=== PATIENT | female | born 1995 | race Two or more races ===

== ENCOUNTER 2024-11-27 16:55 | Emergency (ER) | payer SELFPAY ==
[2024-11-27 16:56] VITALS: BMI 34.0
[2024-11-27 17:06] VITALS: BP 126/80; PULSE 89; RESP 18; TEMP 37; O2SAT 99
--- NOTE | 2024-11-27 17:07 | XR_ITS ---
Examination: Fingers, right hand fourth digit 3 views Technique: AP, oblique, lateral views right hand fourth digit 3 views. Exam date and time: December 07, 2024 1715 hrs. Indications: Patient fell today with injury to the hand, fourth digit pain. Findings: Acute fractures distal phalanx fourth digit including fracture along the long axis of the distal phalanx No major displacement Impression: Acute fractures distal phalanx fourth digit
--- NOTE | 2024-11-27 17:38 | EDNOTE_ITS ---
<Statement entered by Amrita Dyer MD - 11/28/24 16:13> As co-signing physician, I was present and available for consult prn. I concur with the plan and care as documented by the midlevel provider. Upper Extremity Injury RME/HPI General Chief Complaint: Hand/Wrist Problems Stated Complaint: RIGHT FOURTH FINGER INJURY Time Seen by Provider: 11/27/24 17:07 Arrival date/time: 11/27/24 16:55 29-year-old female presents to the emergency department complains of right hand injury specifically the right fourth digit after a ground-level fall today patient reports that she slipped in the mud Limitations: no limitations Related Data Previous Rx's ?Medication ?Instructions ?Recorded hydrocodone 5 mg-acetaminophen 325 1 tab PO BID PRN pa in #10 tabs 11/27/24 mg tablet ibuprofen 800 mg tablet 800 mg PO TID PRN pain #30 t abs 11/27/24 Allergies Allergy/AdvReac Type Severity Reaction Status Date / Time No Known Allergies Allergy Verified 11/27/24 16:56 Review of Systems Review of Systems Systems Reviewed: All systems reviewed, normal except as documented Constitutional Constitutional: Reports system reviewed and no additional complaints, except as documented, Denies fever(s) and Denies headache(s) Eyes Eyes: Reports system reviewed and no additional complaints, except as documented and Denies blurry vision ENT Ears, Nose, Mouth, and Throat: Reports system reviewed and no additional complaints, except as documented, Denies headache(s), Denies nasal congestion and Denies nasal discharge Cardiovascular Cardiovascular: Reports system reviewed and no additional complaints, except as documented, Denies chest pain and Denies dyspnea Respiratory Respiratory: Reports system reviewed and no additional complaints, except as documented, Denies chest congestion, Denies cough and Denies dyspnea Gastrointestinal Gastrointestinal: Reports system reviewed and no additional complaints, except as documented and Denies abdominal pain Musculoskeletal Musculoskeletal: Reports system reviewed and no additional complaints, except as documented, Reports arthralgias, Denies deformity, Denies numbness, Reports stiffness and Denies tingling Integumentary/Breasts Skin/Breast: Reports system reviewed and no additional complaints, except as documented and Denies rash Neurologic Neurologic: Reports system reviewed and no additional complaints, except as documented, Reports as per HPI, Denies headache(s), Denies numbness and Denies tingling Past Medical History Social History SMOKING STATUS: Never smoker ED Exam General Limitations: Present no limitations General appearance: Present alert and in no apparent distress Head Head exam: Present atraumatic, normocephalic and normal inspection Eye Eye exam: Present normal appearance, PERRL and EOMI; Absent conjunctival injection ENT ENT exam: Present normal exam, normal oropharynx and mucous membranes moist Neck Neck exam: Present normal inspection, full ROM and trachea midline Chest Chest inspection: Present normal inspection and symmetric chest wall rise Respiratory Respiratory exam: Present normal lung sounds bilaterally Cardiovascular Cardiovascular exam: Present regular rate, normal rhythm and normal heart sounds Abdominal Exam Abdominal exam: Present soft and normal bowel sounds Extremities Exam Extremities exam: Present normal inspection, full ROM, tenderness, normal capillary refill and joint swelling Back Exam Back exam: Present normal inspection and full ROM Neurological Exam Neurological exam: Present alert, oriented X3 and CN II-XII intact Psychiatric Psychiatric exam: Present normal affect and normal mood Skin Skin exam: Present warm, dry, intact and normal color Course Quality Measures none Orders Category Date Time Status Splint / Immobilizer STAT Care 11/27/24 17:41 Completed XR finger RT min 2V Stat Exams 11/27/24 17:07 Completed Vital Signs Vital signs: Vital Signs Temperature 98.6 F 11/27/24 17:06 Pulse Rate 89 11/27/24 17:06 Respiratory Rate 18 11/27/24 17:06 Blood Pressure 126/80 11/27/24 17:06 Pulse Oximetry (%) 99 11/27/24 17:06 Oxygen Delivery Method Room Air 11/27/24 17:06 O2 saturation 99% room air within normal limits Procedures -ED Splint Fabrication: Pre-Fabricated Type: Finger Protector Reason for Splint: Optimal Positioning and Pain Management Circulation Distal to Splint: Yes Movement Distal to Splint: Yes Senation Distal to Splint: Yes Tolerance: Tolerates Well Extremity Injury MDM Narrative MDM Narrative:: 29-year-old female presents to the emergency department complains of right hand injury specifically the right fourth digit after a ground-level fall today patient reports that she slipped in the mud Patient reports no other injuries On exam patient has pain and bruising to the right hand fourth digit no deformity X-ray of the right hand obtained patient does have fracture right hand fourth digit distal aspect Patient placed in a splint Patient given pain medications and discharged home Patient instructed to follow-up with PCP in order get a referral to orthopedics for worsening symptoms return immediately Patient data External records reviewed:: [facility] previous records Clinical information provided by:: patient Social determinants that could affect healthcare access:: none Patient has the following chronic illnesses:: None How is presenting disease/condition affected by chronic disease/condition?: no chronic disease Evaluation data The following diagnostics were reviewed and interpreted by me:: radiology exam(s) Lab and/or radiology exams considered but not ordered:: Radiology obtain Interpretation Summary: Reviewed by me Medications / Prescriptions Medications or Prescriptions considered but not ordered:: Given Medication administrations:: Given Consultations Consultation(s) initiated? (list below): No Diagnosis Upper Extremity Injury Differential Diagnosis: finger sprain, dislocation of finger, fracture of hand and other (Finger fracture) Most likely diagnosis given after review of the tests above:: Finger fracture Admission Indicated Admission indicated?: not indicated Admission Request Was there a request for admission?: No Disposition Plan Disposition Plan: Discharge Discharge Attestation Discharge Attestation: The patient and all family members were given an opportunity to ask questions and understood the discharge instructions. Discharge instructions specifically effects, indications for sooner follow up or return to the emergency department, and the expected course of current diagnosis. Patient condition: Stable Discharge Plan Plan Patient Disposition: HOME (Self Care) Disposition Comment: Stable Prescriptions/Referrals Prescriptions/Med Rec: New ibuprofen 800 mg tablet 800 mg PO TID PRN (Reason: pain) Qty: 30 0RF hydrocodone-acetaminophen 5-325 mg tablet 1 tab PO BID MDD 10 PRN (Reason: pain) Qty: 10 0RF Problem List Clinical Impression: Finger fracture Patient/Caregiver Discharge Instructions Education Materials: How [employer] [facility] Additional Instructions: Please follow up with your primary care doctor in the next 24-48hrs for any worsening symptoms return here immediately Print Language: Kiswahili Stand Alone Forms: [employer] Award Info., Work/School Release, Patient Portal Info Letter PA/RAUL Supervising Physician PA/RAUL Supervising Physician: Dr. DYER
== END 2024-11-27 19:18 | disposition home or self-care (01) ==
LOC: SERX 19:31
PROVIDERS: Emergency Provider Emergency Medicine
DX: S62.664A Nondisplaced fracture of distal phalanx of right ring finger, initial encounter for closed fracture (principal); W01.0XXA Fall on same level from slipping, tripping and stumbling without subsequent striking against object, initial encounter
CPT/HCPCS: 73140; 99283

== ENCOUNTER 2025-05-19 09:55 | Outpatient (RCR) | payer MEDICAID, SELFPAY ==
--- NOTE | 2025-05-19 10:28 | PT.OIERPT ---
PT OP Initial Eval Patient Information Outpatient Physical Therapy Treatment Date: 05/19/25 Visit Reasons: RIGHT FINGER PAIN Medical Diagnosis: s62.634a; M79.641 Treatment Dx #1: Right Hand Weakness Treatment Dx #2: Right 4th Digit Mobility Deficits Start of Care: 05/19/25 Date of Onset: 04/13/25 Smoking Status Smoking Status: Never smoker Initial Assessment Subjective: Pt is a 30 y/o female s/p right 4th digit k wire removal 04/13/25 due to distal phalanx fracture. Pt still has pain (5/10) with activities. Pt has limitation with gripping, lifting, chores, self care, cooking, cleaning, self care, and performing recreational activities Objective: Right Wrist AROM: all motions are WNL Right 4th Digit Flexion AROM MCP: 90 deg PIP: 59 deg DIP: neutral Right 5th Digit Flexion HAWK MCP: 90 deg PIP: 41 deg DIP neutral Right Wrist MMTs: grossly 3+/5 Client Delivery Specialist Strength L: 89 lbs R: unable Assessment: Pt demonstrate right 4th and 5th digit mobility deficits with hand weakness leading to difficulty with ADLs. Pt will benefit from physical therapy to increase AROM, strength, and work on hand dexterity Short Term and Sexual Assault Counselor Goals 1) Increase right 4th and 5th digit flexion AROM WFL in 8 wks to be able to perform gripping activities 2) Increase right security incident response engineer strength to 85 lbs in 8 wks to be able to perform recreational activities 3) Increase right wrist MMTs grossly to 4/5 in 8 wks to be able to perform chores 4) Decrease hand pain to 2/10 in 8 wks to be able to perform lifting activities 5) Indep with HEP Treatment Plan 1) Manual Therapy 2) Therapeutic Activities 3) Therapeutic Exercises 4) Modalities (ice, heat) Frequency and Duration: 2 x wk for 6 wks Certification Dates: 05/19/25 to 08/19/25 Procedure Charges OP PT Eval Mod Complex 30 minutes: Yes
== END 2025-05-23 23:59 | disposition home or self-care (01) ==
LOC: CPTX 09:55
PROVIDERS: PCP Nurse Practitioner Family; Referring Provider Nurse Practitioner Family; Visit Provider Nurse Practitioner Family
DX: M79.641 Pain in right hand (principal); R53.1 Weakness; S62.634D Displaced fracture of distal phalanx of right ring finger, subsequent encounter for fracture with routine healing; X58.XXXD Exposure to other specified factors, subsequent encounter
CPT/HCPCS: 97162

== ENCOUNTER 2025-06-03 10:00 | Outpatient (RCR) | payer MEDICAID, SELFPAY ==
--- NOTE | 2025-05-27 11:13 | PT.ODAYNRPT ---
PT Outpatient Daily Note OP Daily Note Outpatient Physical Therapy Treatment Date: 05/27/25 Visit Reasons: RIGHT FINGER PAIN Subjective: Pt's fingers feel stiff this morning. Pt has been stretching more at home, however, it hurts . Pt still has band aid on the ring finger per surgeon's request ~ 2 weeks from last consultation. Objective: Pleas see flow chart for list of ther ex performed Assessment: patient instructed to continue finger flexion stretching at home to help increase 4th and 5th digit flexion flexion ROM. Pt demonstrate improvement with 4th and 5th finger flexion AROM post PT session. Plan: Continue with PT Length of Time (minutes) of Treatment: 30 Minutes Procedure Charges Therapeutic Exercise 30 minutes: Yes
--- NOTE | 2025-06-03 14:22 | PT.ODAYNRPT ---
PT Outpatient Daily Note OP Daily Note Outpatient Physical Therapy Treatment Date: 06/03/25 Visit Reasons: RIGHT FINGER PAIN Subjective: Pt's finger and hand is feeling better. Pt can almost make a full fist. Objective: Please see flow chart for list of ther ex performed Assessment: progressing with finger flexion AROM and add more hand resistance with good tolerance Plan: Continue with PT Length of Time (minutes) of Treatment: 30 Minutes Procedure Charges Therapeutic Exercise 30 minutes: Yes
--- NOTE | 2025-07-15 14:25 | PT.ODS1RPT ---
PT OP Progress/Discharge Note Date of Service: 07/15/25 Progress Note/DC Note Progress Note/Discharge Note: DC Note Patient Information Visit Reasons: RIGHT FINGER PAIN Service Discharge Date: 07/15/25 Status Assessment: Pt has been seen for 3 visits (eval + 2 visits). Pt last treated on 06/03/25 and has not returned to therapy. Pt no showed 06/08 and 06/10 appt. At this time Pt will be d/c from care due to non-compliance per attendance policy. Pt did not meet set goals in therapy; thank you for your referrals
== END 2025-06-22 23:59 | disposition home or self-care (01) ==
LOC: CPTX 10:00
PROVIDERS: PCP Nurse Practitioner Family; Referring Provider Nurse Practitioner Family; Visit Provider Nurse Practitioner Family
DX: M79.641 Pain in right hand (principal); R53.1 Weakness; S62.634D Displaced fracture of distal phalanx of right ring finger, subsequent encounter for fracture with routine healing; X58.XXXD Exposure to other specified factors, subsequent encounter
CPT/HCPCS: 97110